=== PATIENT | male | born 1950 | race Caucasian/White ===

== ENCOUNTER 2017-09-26 08:07 | Day surgery (SDC) | payer BC, OTHER ==
[2017-09-26] MEDS ORDERED: LACTATED RINGERS 1,000 ML IV ONE (08:36)
[2017-09-26] MEDS ORDERED: fentaNYL 250 MCG/5 ML VIAL IVP ONE (09:23)
[2017-09-26] MEDS ORDERED: MIDAZOLAM 2 MG/2 ML VIAL IVP ONE (09:23)
[2017-09-26 10:36] VITALS: BP 161/90
== END 2017-09-26 08:08 | disposition home or self-care (01) ==
LOC: SDS 08:07
PROVIDERS: ATTEND Surgery
PROC: 0DJD8ZZ Inspection of Lower Intestinal Tract, Via Natural or Artificial Opening Endoscopic (ICD-10-PCS; principal; 2017-09-26 09:00)
DX: Z12.11 Encounter for screening for malignant neoplasm of colon (principal); K64.4 Residual hemorrhoidal skin tags; K64.8 Other hemorrhoids; E78.5 Hyperlipidemia, unspecified; Z86.010 Personal history of colon polyps; K21.9 Gastro-esophageal reflux disease without esophagitis; I12.9 Hypertensive chronic kidney disease with stage 1 through stage 4 chronic kidney disease, or unspecified chronic kidney disease; N18.9 Chronic kidney disease, unspecified; Z87.891 Personal history of nicotine dependence
CPT/HCPCS: 45378; J7120

== ENCOUNTER 2017-12-09 06:17 | Emergency (ER) | payer BC, MEDICARE ==
[2017-12-09 06:36] LABS: BASOPHILS % (AUTO) 0.3 %; EOSINOPHILS # (AUTO) 0.1 10^3/uL (0.0-0.7); EOSINOPHILS % (AUTO) 1.4 %; HGB - HEMOGLOBIN 16.4 g/dL (14.0-18.0); LYMPHOCYTES # (AUTO) 1.1 10^3/uL (1.5-3.5); LYMPHOCYTES % (AUTO) 11.2 %; MEAN CORPUSCULAR HEMOGLOBIN 32.9 pg (27.0-31.0); MEAN CORPUSCULAR HGB CONC 33.5 g/dL (32.0-36.0); MEAN CORPUSCULAR VOLUME 98.3 fL (80.0-94.0); MEAN PLATELET VOLUME 7.3 fL (7.4-11.4); MONOCYTES # (AUTO) 0.7 10^3/uL (0.0-1.0); MONOCYTES % (AUTO) 6.5 %; NEUTROPHILS # (AUTO) 8.1 10^3/uL (1.5-6.6); NEUTROPHILS % (AUTO) 80.6 %; PLT - PLATELET COUNT 249 10^3/uL (130-450); RED BLOOD COUNT 4.98 10^6/uL (4.70-6.10)
[2017-12-09] MEDS ORDERED: SODIUM CHLORIDE 0.9% 1,000 ML IV ONE (06:39)
[2017-12-09] MEDS ORDERED: KETOROLAC 60 MG/2 ML VIAL IVP STA (06:39)
[2017-12-09] MEDS ORDERED: ONDANSETRON 4 MG/2 ML VIAL IVP STA ×2 (06:44→07:26)
[2017-12-09 07:00] LABS: ALBUMIN 4.2 g/dL (3.2-5.5); ALBUMIN/GLOBULIN RATIO 1.6 (1.0-2.2); BILIRUBIN,TOTAL 0.7 mg/dL (0.2-1.0); CALCIUM 9.3 mg/dL (8.5-10.3); CREATININE 0.8 mg/dL (0.6-1.2); TOTAL PROTEIN 6.9 g/dL (6.7-8.2)
[2017-12-09 07:03] LABS: BILIRUBIN,URINE NEGATIVE (NEGATIVE); GLUCOSE, URINE (UA) NEGATIVE (NEGATIVE); KETONES,URINE (UA) NEGATIVE (NEGATIVE); LEUKOCYTE ESTERASE, URINE NEGATIVE (NEGATIVE); NITRITE,URINE NEGATIVE (NEGATIVE); OCCULT BLOOD,URINE MODERATE (NEGATIVE); PH,URINE 6.5 PH (5.0-7.5); PROTEIN,URINE NEGATIVE (NEGATIVE); UROBILINOGEN,URINE 0.2 (NORMAL) E.U./dL (NORMAL)
[2017-12-09 07:18] LABS: CLARITY,URINE HAZY (CLEAR)
[2017-12-09] MEDS ORDERED: MORPHINE 2 MG/ML SYRINGE IVP STA ×2 (07:26→08:37)
--- NOTE | 2017-12-09 07:28 | ED Physician Documentation ---
History of Present Illness - Stated complaint Stated Complaint: KIDNEY PX - Chief complaint Chief Complaint: Abd Pain - Additonal information Additional information: hx from pt 67 m hx renal colic and stents surgery removal urologist is at [facility] to ED with L flank to LLQ and testicle pain since 330 AMD same as prior stones no fever no hematuria seen nausea Review of Systems Constitutional: denies: Fever, Chills GI: reports: Abdominal Pain, Nausea : denies: Hematuria Musculoskeletal: reports: Back pain Endocrine: denies: Easy bruising / bleeding Immunocompromised: denies: Immunocompromised PD PAST MEDICAL HISTORY - Past Medical History Cardiovascular: Hypertension, Angina Respiratory: None Endocrine/Autoimmune: None : Kidney stones Psych: None Musculoskeletal: Chronic back pain Derm: None - Past Surgical History HEENT: Other - Present Medications Home Medications: Ambulatory Orders Medication Instructions Recorded Confirmed Doxazosin Mesylate 4 mg PO DAILY 09/23/17 09/26/17 Lisinopril 5 mg PO DAILY 09/23/17 09/26/17 Trazodone HCl 50 mg PO DAILY 09/23/17 09/26/17 Ketorolac [Toradol] 10 mg PO Q6H PRN #28 tablet 12/09/17 Ondansetron Odt [Zofran] 4 mg TL Q6H PRN #10 tablet 12/09/17 Oxycodone HCl/Acetaminophen 1 each PO Q6HR PRN #15 tablet 12/09/17 [Percocet 5-325 mg Tablet] - Allergies Allergies/Adverse Reactions: Allergies Allergy/AdvReac Type Severity Reaction Status Date / Time Sulfa (Sulfonamide AdvReac Unknown Verified 12/09/17 06:23 Antibiotics) - Social History Does the pt smoke?: No Smoking Status: Never smoker Does the pt drink ETOH?: Yes - Immunizations Immunizations are current?: Yes PD ED PE NORMAL - Vitals Vital signs reviewed: Yes - Cardiac Cardiac: RRR - Respiratory Respiratory: No respiratory distress, Clear bilaterally - Abdomen Abdomen: Soft, Non tender, Other (no pulsatile mass) - Male Male : Other (circ. no lesions or dc, testicle nl lie, mild TTP, no mass no hernia) - Back Back: No: No CVA TTP (+ L CVA TTP) - Neuro Neuro: Alert and oriented X 3 Results - Vitals Vitals: Vital Signs - 24 hr 12/09/17 12/09/17 06:22 07:42 Temperature 36.4 C L Heart Rate 71 81 Respiratory 20 14 Rate Blood Pressure 153/85 H 152/87 H O2 Saturation 100 99 Oxygen O2 Source Room air - Labs Labs: Laboratory Tests 12/09/17 12/09/17 12/09/17 06:30 06:30 06:52 WBC 10.0 RBC 4.98 Hgb 16.4 Hct 48.9 MCV 98.3 H MCH 32.9 H MCHC 33.5 RDW 13.0 Plt Count 249 MPV 7.3 L Neut # (Auto) 8.1 H Lymph # (Auto) 1.1 L [place] # (Auto) 0.7 Eos # (Auto) 0.1 Baso # (Auto) 0.0 Absolute Nucleated RBC 0.00 Nucleated RBC % 0.0 Sodium 137 Potassium 3.9 Chloride 103 Carbon Dioxide 29 Anion Gap 5.0 L BUN 13 Creatinine 0.8 Estimated GFR (MDRD) 97 Glucose 137 H Calcium 9.3 Total Bilirubin 0.7 AST 19 ALT 17 Alkaline Phosphatase 72 Total Protein 6.9 Albumin 4.2 Globulin 2.7 Albumin/Globulin Ratio 1.6 Lipase 26 Urine Color YELLOW Urine Clarity HAZY Urine pH 6.5 Ur Specific [place] 1.025 Urine Protein NEGATIVE Urine Glucose (UA) NEGATIVE Urine Ketones NEGATIVE Urine Occult Blood MODERATE H Urine Nitrite NEGATIVE Urine Bilirubin NEGATIVE Urine Urobilinogen 0.2 (NORMAL) Ur Leukocyte Esterase NEGATIVE Urine RBC 11-25 H Urine WBC 0-3 Ur Squamous Epith Cells RARE Squamous Urine Bacteria None Seen Ur Microscopic Review INDICATED Urine Culture Comments NOT INDICATED - Rads (name of study) CT AP Radiology: See rad report (obstructing distal left ureteral stone 4.5 X 3 mm with hydro, non obstructing R renal calculi, nl appendix) PD MEDICAL DECISION MAKING - ED course ED course: renal colic < 5 mm distal afebrile nl WBC, no WBC or bacteria on UA if can control pain feel pt can dc home to p urology - Sepsis Event Vital Signs: Vital Signs - 24 hr 12/09/17 12/09/17 06:22 07:42 Temperature 36.4 C L Heart Rate 71 81 Respiratory 20 14 Rate Blood Pressure 153/85 H 152/87 H O2 Saturation 100 99 Oxygen O2 Source Room air Departure - Departure Disposition: 01 Home, Self Care Clinical Impression: Renal colic Condition: Good Instructions: ED Stone Renal W Colic Follow-Up: Edward Nick DO [Primary Care Provider] - Prescriptions: Oxycodone HCl/Acetaminophen [Percocet 5-325 mg Tablet] 1 each PO Q6HR PRN #15 tablet PRN Reason: Severe Pain Ketorolac [Toradol] 10 mg PO Q6H PRN #28 tablet PRN Reason: Pain Ondansetron Odt [Zofran] 4 mg TL Q6H PRN #10 tablet PRN Reason: Nausea / Vomiting Comments: The CT shows that the stone is less than 5 mm and has already passed through much of the ureter Most stones less than 5 mm can be passed without urology intervention There is no associated urine infection that we can detect on our labs today So it seems safe to let you go home with pain medications - do not take ibuprofen while taking toradol Please follow up with your urologist if not passed by Tuesday And return to the ER (here or at [facility] where your urologist is) if worse in any way Forms: Activity restrictions
[2017-12-09 07:32] LABS: BACTERIA,URINE None Seen /HPF (None Seen); SQUAMOUS EPITHELIAL CELL,UR RARE Squamous (<= Few)
--- NOTE | 2017-12-09 08:46 | CT Report ---
Procedure Date: 12/09/2017 Accession Number: [id number] / [id number] Procedure: CT - Abdomen/Pelvis W/O CPT Code: FULL RESULT: EXAM: CT ABDOMEN AND PELVIS EXAM DATE: 12/09/2017 08:31 AM. CLINICAL HISTORY: Left flank pain. History of bilateral kidney stones. COMPARISONS: None. TECHNIQUE: Routine helical CT imaging was performed through the abdomen and pelvis. IV contrast: None. Enteric contrast: No. Reconstructions: Coronal and sagittal. In accordance with CT protocol optimization, one or more of the following dose reduction techniques were utilized for this exam: automated exposure control, adjustment of mA and/or KV based on patient size, or use of iterative reconstructive technique. FINDINGS: Lung Bases: Bibasilar scar/atelectasis. Heart size is normal. Tiny hiatal hernia. Liver: Normal. No masses. Gallbladder/Bile Ducts: Unremarkable. Spleen: Normal. Pancreas: Pancreatic parenchymal volume loss. No peripancreatic edema. Adrenal Glands: Normal. Kidneys: Left perinephric stranding and left hydronephrosis and left ureteral dilatation to the distal left ureter where there is an obstructing 4.5 x 3 mm calculus adjacent to the left iliac vessels. Distally the left ureter is not dilated. Numerous nonobstructing right renal calculi are seen the largest in the lower pole measuring 6 mm. Peritoneal Cavity/Bowel: Stomach is nondistended. No bowel obstruction. Small to moderate volume of stool in the colon. Appendix is normal. No diverticulitis. No free air. No intra-abdominal fluid collections. Pelvic Organs: No bladder calculi. Prostate gland is enlarged measuring in transverse extent 5.8 cm. No pelvic free fluid. No pelvic adenopathy. Vasculature: Atherosclerotic calcified plaque. No aneurysm. Bones: Degenerative changes of the lower thoracic and lumbar spine and both hip joints. Other: None. IMPRESSION: 1. Obstructing distal left ureteral 4.5 x 3 mm calculus causing left hydronephrosis. 2. Nonobstructing right renal calculi. Normal appendix. RADIA
[2017-12-09 10:03] VITALS: BP 162/90
== END 2017-12-09 10:06 | disposition home or self-care (01) ==
LOC: ED 06:17
DX: N20.0 Calculus of kidney (principal); N13.2 Hydronephrosis with renal and ureteral calculous obstruction; I10 Essential (primary) hypertension
CPT/HCPCS: 36415; 74176; 80053; 81001; 83690; 85025; 96361; 96374; 96375; 96376; 99283; 99284; J2270; 81003; 87086

== ENCOUNTER 2018-01-21 08:11 | Outpatient (CLI) | payer BC, MEDICARE ==
--- NOTE | 2018-01-21 14:06 | Ultrasound Report ---
Procedure Date: 01/21/2018 Accession Number: [id number] / [id number] Procedure: US - Retroperitoneal CPT Code: FULL RESULT: EXAM: RENAL ULTRASOUND EXAM DATE: 01/21/2018 09:11 AM. CLINICAL HISTORY: URETERAL STONE. COMPARISON: CT 12/09/2017. TECHNIQUE: Real-time scanning was performed with static images obtained. FINDINGS: Right Kidney: 12.1 x 6.2 x 6.0 cm. Normal echotexture with no stones, contour-deforming masses, or hydronephrosis. Nonobstructive calculi measure up to 9 mm. Left Kidney: 12.3 x 6.3 x 6.2 cm. Normal echotexture with no stones, contour-deforming masses, or hydronephrosis. No visualized calculi. Bladder: Bilateral jets seen. The prevoid bladder volume was 229 cc. The postvoid bladder volume was 135 cc. Other: None. IMPRESSION: 1. Resolution of left hydronephrosis. 2. Nonobstructive right renal calculi. 3. Significant postvoid bladder volume. RADIA
== END 2018-01-21 08:12 | disposition home or self-care (01) ==
LOC: DI 08:11
PROVIDERS: ATTEND Physician Assistant
DX: N20.2 Calculus of kidney with calculus of ureter (principal)
CPT/HCPCS: 76770

== ENCOUNTER 2018-01-28 07:09 | Outpatient (CLI) | payer BC, MEDICARE ==
--- NOTE | 2018-01-28 14:42 | CT Report ---
Procedure Date: 01/28/2018 Accession Number: [id number] / [id number] Procedure: CT - KUB CPT Code: FULL RESULT: EXAM: CT ABDOMEN AND PELVIS (CT KUB) EXAM DATE: 01/28/2018 07:45 AM. CLINICAL HISTORY: CALCULUS OF KIDNEY. COMPARISONS: ABDOMEN/PELVIS W/O 12/09/2017 8:24 AM. TECHNIQUE: Routine axial helical CT imaging was performed through the abdomen and pelvis without IV contrast. Reconstructions: Coronal and sagittal. In accordance with CT protocol optimization, one or more of the following dose reduction techniques were utilized for this exam: automated exposure control, adjustment of mA and/or KV based on patient size, or use of iterative reconstructive technique. FINDINGS: Lung Bases: Unremarkable. Right Kidney/Ureter: There are multiple nonobstructing calyceal calculi, as seen on the prior exam. The largest in the inferior pole measures up to 7 mm (series 3 image 66). No hydronephrosis, perinephric fat stranding, or hydroureter. Left Kidney/Ureter: The previously seen left hydronephrosis and perinephric fat stranding have resolved. No renal calculi or ureteral calculi. Other Solid Organs: Noncontrast images of the solid organs are grossly unremarkable. Gallbladder/Bile Ducts: Unremarkable. Peritoneal Cavity: No free fluid, free air or leticia adenopathy. Bowel is grossly unremarkable. The appendix is normal. Pelvic Organs: No bladder stones or wall thickening. The prostate is enlarged measuring approximately 4.9 x 4.7 cm in the transverse plane, similar to prior. Vasculature: There is mild atherosclerotic calcification of the abdominal aorta and iliac arteries. No aneurysm. Other: No acute osseous abnormality. There are mild multilevel degenerative disk changes of the lumbar spine. IMPRESSION: 1. Interval resolution of previously seen left hydronephrosis and hydroureter. No left-sided urinary tract stones identified. 2. Multiple nonobstructing right renal calculi, as seen on the prior exam. No right hydronephrosis or hydroureter. RADIA
== END 2018-01-28 07:10 | disposition home or self-care (01) ==
LOC: DI 07:09
PROVIDERS: ATTEND Urology
DX: N20.0 Calculus of kidney (principal)
CPT/HCPCS: 74176

== ENCOUNTER 2018-11-08 07:41 | Emergency (ER) | payer MEDICARE, BC ==
[2018-11-08 08:21] LABS: BASOPHILS # (AUTO) 0.1 10^3/uL (0.0-0.1); BASOPHILS % (AUTO) 0.6 %; EOSINOPHILS # (AUTO) 0.1 10^3/uL (0.0-0.7); EOSINOPHILS % (AUTO) 1.2 %; HGB - HEMOGLOBIN 15.6 g/dL (14.0-18.0); LYMPHOCYTES # (AUTO) 1.5 10^3/uL (1.5-3.5); LYMPHOCYTES % (AUTO) 14.4 %; MEAN CORPUSCULAR HEMOGLOBIN 32.5 pg (27.0-31.0); MEAN CORPUSCULAR HGB CONC 34.2 g/dL (32.0-36.0); MEAN CORPUSCULAR VOLUME 94.9 fL (80.0-94.0); MONOCYTES # (AUTO) 1.1 10^3/uL (0.0-1.0); NEUTROPHILS # (AUTO) 7.8 10^3/uL (1.5-6.6); NEUTROPHILS % (AUTO) 73.8 %; PLT - PLATELET COUNT 268 10^3/uL (130-450); RED BLOOD COUNT 4.81 10^6/uL (4.70-6.10); RED CELL DISTRIBUTION WIDTH 13.6 % (12.0-15.0); WHITE BLOOD COUNT 10.6 x10^3/uL (4.8-10.8)
[2018-11-08 08:42] LABS: BILIRUBIN,URINE NEGATIVE (NEGATIVE); CLARITY,URINE CLEAR (CLEAR); GLUCOSE, URINE (UA) NEGATIVE (NEGATIVE); KETONES,URINE (UA) NEGATIVE (NEGATIVE); LEUKOCYTE ESTERASE, URINE NEGATIVE (NEGATIVE); NITRITE,URINE NEGATIVE (NEGATIVE); OCCULT BLOOD,URINE NEGATIVE (NEGATIVE); PROTEIN,URINE NEGATIVE (NEGATIVE); UROBILINOGEN,URINE 0.2 (NORMAL) E.U./dL (NORMAL)
--- NOTE | 2018-11-08 09:01 | XRAY Report ---
Reason: fall down the stairs. pain/swelling Procedure Date: 11/08/2018 Accession Number: [id number] / [id number] Procedure: XR - Knee 3 View RT CPT Code: FULL RESULT: EXAM: RIGHT KNEE RADIOGRAPHY EXAM DATE: 11/08/2018 08:30 AM. CLINICAL HISTORY: Fall down the stairs. pain/swelling. COMPARISON: None. TECHNIQUE: 3 views. FINDINGS: Bones: No fractures or bone lesions. Joints: . No effusion. No subluxations. Soft Tissues: No soft tissue swelling. IMPRESSION: Normal right knee radiography. RADIA
[2018-11-08 09:23] LABS: ALBUMIN 4.2 g/dL (3.2-5.5); ALBUMIN/GLOBULIN RATIO 1.6 (1.0-2.2); BILIRUBIN,TOTAL 1.1 mg/dL (0.2-1.0); CALCIUM 9.5 mg/dL (8.5-10.3); CREATININE 0.7 mg/dL (0.6-1.2); TOTAL PROTEIN 6.9 g/dL (6.7-8.2)
[2018-11-08] MEDS ORDERED: ONDANSETRON 4 MG/2 ML VIAL IVP STA (09:23)
[2018-11-08] MEDS ORDERED: HYDROmorphone 1 MG/ML CARPUJECT IVP STA ×2 (09:23→11:32)
--- NOTE | 2018-11-08 10:01 | XRAY Report ---
Reason: cough Procedure Date: 11/08/2018 Accession Number: [id number] / [id number] Procedure: XR - Chest 2 View X-Ray CPT Code: 66055 FULL RESULT: EXAM: CHEST RADIOGRAPHY EXAM DATE: 11/08/2018 09:53 AM. CLINICAL HISTORY: Cough. COMPARISON: None. TECHNIQUE: 2 views. FINDINGS: Lungs/Pleura: No focal opacities evident. No peribronchial cuffing or interstitial abnormality. No pleural effusion. No pneumothorax. Normal volumes. Mediastinum: Heart and mediastinal contours are unremarkable. Other: None. IMPRESSION: Normal 2-view chest radiography. RADIA
[2018-11-08 10:04] LABS: URIC ACID 4.2 mg/dL (2.6-7.2)
[2018-11-08 10:30] LABS: CRP - C-REACTIVE PROTEIN < 1.0 mg/dL (0-1.0)
[2018-11-08] MEDS ORDERED: KETOROLAC 30 MG/ML VIAL IVP STA (12:34)
[2018-11-08] MEDS ORDERED: SODIUM CHLORIDE 0.9% 1,000 ML IV ONE (12:34)
--- NOTE | 2018-11-08 12:44 | ED Physician Documentation ---
History of Present Illness - Stated complaint Stated Complaint: RT LEG PX - Chief complaint Chief Complaint: General - History obtained from History obtained from: Patient, Family - History of Present Illness Pain level max: 7 Pain level now: 7 (This is a 68-year-old male presents with his complains that he was walking down the steps 2 days ago when his right leg just gave out on him and he fell. It felt numb. He landed on his knee. He worked out in the yard all day yesterday very active and then Yesterday was extremely fatigued to the point that he drove himself to work but fell asleep [address] there without wrecking his car. He decided when he got working he did turn around and come straight home. 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 He never passed out. Last night before he went to bed he was feeling little dizzy and has had some palpitations with feeling like his heart was racing intermittently. He woke up this morning in extreme pain around 1 AM. He took some Aleve around 4 AM for the pain in the knee. It has not helped at all.He denies shortness of breath or chest pain. He has had an L4-5 pinched nerve with injections in the past.) Review of Systems Constitutional: denies: Fever Eyes: denies: Decreased vision Nose: denies: Congestion Throat: denies: Sore throat Cardiac: reports: Palpitations, Pedal edema (Right leg for the past 6 to 8 months it swells throughout the day.), Other (Patient had a cardiac catheterization 8 or 10 years ago that was normal). denies: Chest pain / pressure Respiratory: denies: Dyspnea, Cough GI: denies: Abdominal Pain, Nausea, Vomiting : reports: Frequency, Other (History of enlarged prostate and kidney stones. He sees a urologist no prior surgery). denies: Dysuria Skin: reports: Abrasion (s) (Right knee when he fell). denies: Rash Musculoskeletal: reports: Back pain (Chronic back pain with a history of disc herniation L4-L5 that he underwent injections for.) Neurologic: reports: Numbness (The right leg felt numb when he fell 4 days ago), Headache (Occipital) PD PAST MEDICAL HISTORY - Past Medical History Past Medical History: Yes Cardiovascular: Hypertension, Angina Respiratory: None Endocrine/Autoimmune: None : Benign prostate hypertrophy, Kidney stones Psych: None Musculoskeletal: Chronic back pain Derm: None - Past Surgical History HEENT: Other - Present Medications Home Medications: Ambulatory Orders Medication Instructions Recorded Confirmed RX: Lisinopril 5 mg PO DAILY 09/23/17 11/08/18 RX: Trazodone HCl 50 mg PO DAILY 09/23/17 11/08/18 Hydrocodone/Acetaminophen 1 - 2 each PO Q6H PRN #14 tablet 11/08/18 [Hydrocodon-Acetaminophen 5-325] RX: Naproxen Sodium 550 mg PO BID #20 tablet 11/08/18 Tamsulosin HCl [Flomax] 0.4 mg PO DAILY 11/08/18 11/08/18 - Allergies Allergies/Adverse Reactions: Allergies Allergy/AdvReac Type Severity Reaction Status Date / Time Sulfa (Sulfonamide AdvReac Unknown Verified 11/08/18 07:51 Antibiotics) - Social History Does the pt smoke?: No Smoking Status: Never smoker Does the pt drink ETOH?: Yes Does the pt have substance abuse?: No - Immunizations Immunizations are current?: Yes - POLST Patient has POLST: No PD ED PE NORMAL - Vitals Vital signs reviewed: Yes - General General: Alert and oriented X 3, No acute distress, Well developed/nourished - HEENT HEENT: Atraumatic, PERRL, EOMI, Moist mucous membranes, Pharynx benign - Neck Neck: Supple, no meningeal sign, No bruit - Cardiac Cardiac: RRR, No murmur - Respiratory Respiratory: No respiratory distress, Clear bilaterally - Abdomen Abdomen: Normal bowel sounds, Soft, Non tender - Derm Derm: Normal color, Other (Abrasion to the lateral right knee at the tibial plateau) - Extremities Extremities: No deformity, Other (There is erythema overlying the right patella and warmth. Its mildly boggy. Is very well sharply demarcated. Range of motion about the knee is limited because of this. No obvious effusion. Knee is stable to varus and valgus stresses.) - Neuro Neuro: Alert and oriented X 3, knit goods mender 2-12 intact, No motor deficit, No sensory deficit - Psych Psych: Normal mood, Normal affect Results - Vitals Vitals: Vital Signs - 24 hr 0511/08/18 11/08/18 07:47 10:25 12:09 Temperature 36.5 C Heart Rate 83 66 64 Respiratory 14 19 17 Rate Blood Pressure 142/87 H 142/87 H 138/84 H O2 Saturation 97 100 98 11/08/18 11/08/18 12:49 13:44 Temperature Heart Rate 75 69 Respiratory 15 22 Rate Blood Pressure 143/84 H 143/87 H O2 Saturation 99 96 Oxygen O2 Source Room air - Labs Labs: Laboratory Tests 11/08/18 11/08/18 11/08/18 07:57 08:05 08:05 WBC 10.6 RBC 4.81 Hgb 15.6 Hct 45.7 MCV 94.9 H MCH 32.5 H MCHC 34.2 RDW 13.6 Plt Count 268 MPV 8.0 Neut # (Auto) 7.8 H Lymph # (Auto) 1.5 [place] # (Auto) 1.1 H Eos # (Auto) 0.1 Baso # (Auto) 0.1 Absolute Nucleated RBC 0.00 Nucleated RBC % 0.0 ESR Sodium 139 Potassium 5.1 H Chloride 103 Carbon Dioxide 29 Anion Gap 7.0 BUN 15 Creatinine 0.7 Estimated GFR (MDRD) 113 Glucose 110 H POC Whole Bld Glucose 115 H Lactic Acid Uric Acid Calcium 9.5 Total Bilirubin 1.1 H AST 18 ALT 15 Alkaline Phosphatase 68 C-Reactive Protein Total Protein 6.9 Albumin 4.2 Globulin 2.7 Albumin/Globulin Ratio 1.6 Lipase 25 Urine Color Urine Clarity Urine pH Ur Specific [place] Urine Protein Urine Glucose (UA) Urine Ketones Urine Occult Blood Urine Nitrite Urine Bilirubin Urine Urobilinogen Ur Leukocyte Esterase Ur Microscopic Review Urine Culture Comments 11/08/18 11/08/18 11/08/18 08:30 08:55 08:55 WBC RBC Hgb Hct MCV MCH MCHC RDW Plt Count MPV Neut # (Auto) Lymph # (Auto) [place] # (Auto) Eos # (Auto) Baso # (Auto) Absolute Nucleated RBC Nucleated RBC % ESR 1 Sodium Potassium Chloride Carbon Dioxide Anion Gap BUN Creatinine Estimated GFR (MDRD) Glucose POC Whole Bld Glucose Lactic Acid Uric Acid 4.2 Calcium Total Bilirubin AST ALT Alkaline Phosphatase C-Reactive Protein < 1.0 Total Protein Albumin Globulin Albumin/Globulin Ratio Lipase Urine Color YELLOW Urine Clarity CLEAR Urine pH 6.0 Ur Specific [place] 1.020 Urine Protein NEGATIVE Urine Glucose (UA) NEGATIVE Urine Ketones NEGATIVE Urine Occult Blood NEGATIVE Urine Nitrite NEGATIVE Urine Bilirubin NEGATIVE Urine Urobilinogen 0.2 (NORMAL) Ur Leukocyte Esterase NEGATIVE Ur Microscopic Review NOT INDICATED Urine Culture Comments NOT INDICATED 11/08/18 09:55 WBC RBC Hgb Hct MCV MCH MCHC RDW Plt Count MPV Neut # (Auto) Lymph # (Auto) [place] # (Auto) Eos # (Auto) Baso # (Auto) Absolute Nucleated RBC Nucleated RBC % ESR Sodium Potassium Chloride Carbon Dioxide Anion Gap BUN Creatinine Estimated GFR (MDRD) Glucose POC Whole Bld Glucose Lactic Acid 0.6 Uric Acid Calcium Total Bilirubin AST ALT Alkaline Phosphatase C-Reactive Protein Total Protein Albumin Globulin Albumin/Globulin Ratio Lipase Urine Color Urine Clarity Urine pH Ur Specific [place] Urine Protein Urine Glucose (UA) Urine Ketones Urine Occult Blood Urine Nitrite Urine Bilirubin Urine Urobilinogen Ur Leukocyte Esterase Ur Microscopic Review Urine Culture Comments PD MEDICAL DECISION MAKING - ED course Complexity details: reviewed results, re-evaluated patient, d/w patient, d/w family ED course: Patient initially declined any pain medication for his right knee but then requested to the nursing staff that he received something so he got Dilaudid and some Zofran. He required a dose of 2 mg to bring the pain under control and at that point he was able to bend the knee and straighten it although it was more painful to straighten it. His laboratory studies showed a normal white blood cell count, normal sed rate normal CRP and normal uric acid. Patient did have an injury where he fell onto the knee and then 2 days ago was outside working vigorously in the yard.I do not see any indication at this time that this is a septic joint. To be treated with naproxen twice a day and also given a few doses of hydrocodone. I would like him reevaluated in 24 to 48 hours or return to the emergency department sooner if his symptoms are worsening. He is given a note to be off work so that he can be home and resting and of also recommended applying ice to the knee and avoiding repetitive movements. Departure - Departure Disposition: 01 Home, Self Care Clinical Impression: Bursitis Qualifiers: Bursitis location: knee Knee bursitis location: prepatellar bursitis Laterality: right Qualified Code(s): M70.41 - Prepatellar bursitis, right knee Fatigue Qualifiers: Fatigue type: unspecified Qualified Code(s): R53.83 - Other fatigue Condition: Good Instructions: ED Bursitis Follow-Up: Edward Nick DO [Primary Care Provider] - Prescriptions: Hydrocodone/Acetaminophen [Hydrocodon-Acetaminophen 5-325] 1 - 2 each PO Q6H PRN #14 tablet PRN Reason: pain RX: Naproxen Sodium 550 mg PO BID #20 tablet Comments: Rest. May apply ice to the knee. Take the naproxen twice a day as prescribed with food. May use hydrocodone if needed for pain but do not take additional Tylenol or try to drive or operate machinery if taking that. Recheck with your primary care provider in 2 days for recheck. Return to the emergency department if you are having increasing pain, spreading redness, fever, vomiting and unable to keep anything down, you pass out or other problems arise. Forms: Activity restrictions Discharge Date/Time: 11/08/18 13:55
[2018-11-08 13:44] VITALS: BP 143/87
== END 2018-11-08 13:55 | disposition home or self-care (01) ==
LOC: ED 07:41
DX: M70.41 Prepatellar bursitis, right knee (principal); S80.211A Abrasion, right knee, initial encounter; W10.9XXA Fall (on) (from) unspecified stairs and steps, initial encounter; Y92.009 Unspecified place in unspecified non-institutional (private) residence as the place of occurrence of the external cause; R53.83 Other fatigue; R42 Dizziness and giddiness; R00.2 Palpitations; I10 Essential (primary) hypertension; N40.1 Benign prostatic hyperplasia with lower urinary tract symptoms; R35.0 Frequency of micturition
CPT/HCPCS: 36415; 71046; 73562; 80053; 81003; 83605; 83690; 84550; 85025; 85651; 86140; 93005; 96374; 96375; 96376; 99283; 99284; J1170; 81001; 87086

== ENCOUNTER 2018-12-19 07:08 | Outpatient (CLI) | payer MEDICARE, OTHER ==
--- NOTE | 2018-12-19 16:01 | Ultrasound Report ---
Reason: HISTORY OF KIDNEY STONES Procedure Date: 12/19/2018 Accession Number: [id number] / [id number] Procedure: US - Retroperitoneal CPT Code: FULL RESULT: EXAM: RENAL ULTRASOUND EXAM DATE: 12/19/2018 08:21 AM. CLINICAL HISTORY: History of kidney stones. COMPARISON: Retroperitoneal ultrasound 01/21/2018. TECHNIQUE: Real-time scanning was performed with static images obtained. FINDINGS: Right Kidney: 12.6 cm. There is moderate right-sided hydronephrosis with a 0.8 cm calculus in the mid to distal ureter, at least partially obstructing given presence of a residual ureteral jet but clear hydronephrosis. Left Kidney: 11.3 cm. Normal echotexture with no stones, contour-deforming masses, or hydronephrosis. Bladder: Again seen is a prominent masslike prostate lifting the base of the bladder with irregular appearance of the dome of the prostate, at least 4.2 x 3.7 x 4.6 cm. Bilateral jets seen. The prevoid bladder volume was 152 cc. The patient could not void. Other: None. IMPRESSION: Ureteral 0.8 cm right-sided calculus with upstream moderate hydronephrosis as described above. RAD[facility] The call report notification system was initiated by Dr. Rolando Li at 03:51 PM on 12/19/2018. ADDENDUM: 12/19/18 16:23 The above call report findings were discussed with Cristina Hernandez by Dr. Rolando Li at 04:23 PM on 12/19/2018.
== END 2018-12-19 07:09 | disposition home or self-care (01) ==
LOC: DI 07:08
PROVIDERS: ATTEND Urology
DX: N13.2 Hydronephrosis with renal and ureteral calculous obstruction (principal); Z87.442 Personal history of urinary calculi
CPT/HCPCS: 76770

== ENCOUNTER 2019-07-18 09:58 | Outpatient (CLI) | payer MEDICARE, OTHER ==
--- NOTE | 2019-07-18 15:47 | XRAY Report ---
Reason: CALCULUS OF KIDNEY Procedure Date: 07/18/2019 Accession Number: [id number] / [id number] Procedure: XR - Abdomen 1 View X-Ray CPT Code: 57915 Final Report FULL RESULT: EXAM: ABDOMEN RADIOGRAPHY EXAM DATE: 07/18/2019 11:29 AM. CLINICAL HISTORY: CALCULUS OF KIDNEY. COMPARISON: None. TECHNIQUE: 1 view. FINDINGS: Bowel Gas Pattern: Within normal limits. No dilated loops. Other: No radiopaque calculus in the field IMPRESSION: No radiopaque calculus in the field. RADIA
== END 2019-07-18 09:59 | disposition home or self-care (01) ==
LOC: LAB 09:58 → DI 09:59
PROVIDERS: ATTEND Urology
DX: Z12.5 Encounter for screening for malignant neoplasm of prostate (principal); N20.0 Calculus of kidney
CPT/HCPCS: 36415; 74018; G0103; 84153

== ENCOUNTER 2019-11-23 16:46 | Outpatient (CLI) | payer MEDICARE, OTHER ==
--- NOTE | 2019-11-23 18:35 | Ultrasound Report ---
PROCEDURE: Duplex Ext Veins Right INDICATIONS: THIGH PAIN history of sclerotherapy. TECHNIQUE: Real-time imaging, as well as color and pulse Doppler interrogation, were performed of the lower extr emity deep veins from the inguinal ligament to the popliteal fossa. COMPARISON: None. FINDINGS: The deep veins are normally compressible, and free of intraluminal thrombus. Color and pu lse Doppler demonstrate normal phasic intraluminal flow. There is normal augmentation response to di stal compression maneuver. The greater saphenous vein is noncompressible and demonstrates no flow. F inding may be the result of greater saphenous vein ablation. Superficial venous thrombus could also p roduces appearance. IMPRESSION: 1. No evidence of right lower extremity DVT. 2. Noncompressible greater saphenous vein, suggestive of post surgical sequelae versus superficial th rombophlebitis. Correlation with surgical history recommended. Reviewed by: Linda Platt MD on 11/23/2019 6:34 PM PDT Approved by: Linda Platt MD on 11/23/2019 6:34 PM PDT Station ID: [id number]
== END 2019-11-23 16:47 | disposition home or self-care (01) ==
LOC: DI 16:46
PROVIDERS: ATTEND Physician Assistant Medical
DX: I87.8 Other specified disorders of veins (principal)

== ENCOUNTER 2020-04-24 18:49 | Outpatient (CLI) | payer MEDICARE, OTHER ==
--- NOTE | 2020-04-25 08:37 | Ultrasound Report ---
PROCEDURE: Retroperitoneal INDICATIONS: Left-sided renal colic TECHNIQUE: Real-time scanning was performed of the retroperitoneal organs, with image documentation. COMPARISON: 12/09/2017 CT abdomen and pelvis; 12/19/2018 retroperitoneal ultrasound. FINDINGS: Right kidney: There are multiple nonobstructing right renal calculi measuring up to 5 mm. These are g rossly similar in size and number to the comparison CT and ultrasound exams. There is no hydronephros is. Left kidney: Normal appearance of the left kidney without calculus or hydronephrosis demonstrated. Urinary bladder: No urinary bladder wall thickening or mass. Both ureteral jets are identified. There is a postvoid residual of 56 mL. Mild prostatomegaly. Urinary bladder is otherwise normal. IMPRESSION: Mild prostatomegaly and small post void residual. Multiple nonobstructing right renal calculi. No hydronephrosis in either kidney. Reviewed by: Edward Yuan MD on 04/25/2020 8:35 AM PST Approved by: Edward Yuan MD on 04/25/2020 8:35 AM PST Station ID: [id number]
== END 2020-04-24 18:50 | disposition home or self-care (01) ==
LOC: DI 18:49
PROVIDERS: ATTEND Urology
DX: N40.0 Benign prostatic hyperplasia without lower urinary tract symptoms (principal); N20.0 Calculus of kidney
CPT/HCPCS: 76770

== ENCOUNTER 2020-09-15 07:32 | Outpatient (CLI) | payer MEDICARE, OTHER ==
--- NOTE | 2020-09-15 10:26 | Ultrasound Report ---
PROCEDURE: Aorta Screening INDICATIONS: HX OF NICOTINE DEPENDENCY TECHNIQUE: Real time scanning was performed of the aorta and iliac arteries, with image documentatio n. COMPARISON: Retroperitoneal ultrasound 04/24/2020. FINDINGS: Aorta: Proximal aortic diameter measures 2.5 x 2.4 cm. Mid-aorta measures 2.5 x 2.4 cm. Distal aor tic diameter is 2.0 x 2.1 cm. Iliac arteries: Right common iliac artery measures 1.1 x 1.1 cm. Left common iliac artery measures 1.1 x 1.0 cm. IMPRESSION: No aneurysm found. Reviewed by: Carlos Acosta MD on 09/15/2020 10:24 AM PDT Approved by: Carlos Acosta MD on 09/15/2020 10:24 AM PDT Station ID: [id number]
== END 2020-09-15 07:33 | disposition home or self-care (01) ==
LOC: DI 07:32
PROVIDERS: ATTEND Physician Assistant Medical
DX: Z13.6 Encounter for screening for cardiovascular disorders (principal); Z87.891 Personal history of nicotine dependence

== ENCOUNTER 2021-09-28 17:54 | Emergency (ER) | payer MEDICARE, OTHER ==
[2021-09-28 18:51] LABS: BILIRUBIN,URINE NEGATIVE (NEGATIVE); GLUCOSE, URINE (UA) NEGATIVE (NEGATIVE); KETONES,URINE (UA) NEGATIVE (NEGATIVE); LEUKOCYTE ESTERASE, URINE NEGATIVE (NEGATIVE); NITRITE,URINE NEGATIVE (NEGATIVE); OCCULT BLOOD,URINE NEGATIVE (NEGATIVE); PH,URINE 7.5 PH (5.0-7.5); PROTEIN,URINE NEGATIVE (NEGATIVE); UROBILINOGEN,URINE 0.2 (NORMAL) E.U./dL (NORMAL)
[2021-09-28 18:53] LABS: CLARITY,URINE CLEAR (CLEAR)
[2021-09-28] MEDS ORDERED: PHENAZOPYRIDINE 100 MG TABLET PO STA (19:26)
--- NOTE | 2021-09-28 19:28 | ED Physician Documentation ---
PD HPI MALE - Stated complaint Stated Complaint: UNABLE TO URINATE - Chief complaint Chief Complaint: Abd Pain - History obtained from History obtained from: Patient - History of Present Illness Associated symptoms: Dysuria, Urinary frequency, Other (states weak urinary stream) - Additional information Additional information: Patient has had difficulty with urination for several months. Over the past 4 to 5 days he has had some burning with urination as well. Feels he is not emptying his bladder completely. Recently started on dutasteride in addition to 0.8 mg of Flomax at home. He has an appointment with urology in the morning. No fevers. No chills. No nausea. No vomiting. Has a history of enlarged prostate. Review of Systems Constitutional: denies: Fever, Chills Respiratory: denies: Cough GI: denies: Vomiting, Diarrhea : reports: Dysuria, Frequency, Hesitancy. denies: Unable to Void Skin: denies: Rash Musculoskeletal: denies: Neck pain, Back pain Neurologic: denies: Headache PD PAST MEDICAL HISTORY - Past Medical History Cardiovascular: Hypertension, Angina Respiratory: None Endocrine/Autoimmune: None : Benign prostate hypertrophy, Kidney stones Psych: None Musculoskeletal: Chronic back pain Derm: None - Past Surgical History HEENT: Other - Present Medications Home Medications: Ambulatory Orders Medication Instructions Recorded Confirmed Trazodone HCl 50 mg PO DAILY 09/23/17 11/08/18 lisinopriL [Lisinopril] 5 mg PO DAILY 09/23/17 11/08/18 Hydrocodone/Acetaminophen 1 - 2 each PO Q6H PRN #14 tablet 11/08/18 [Hydrocodon-Acetaminophen 5-325] Naproxen Sodium 550 mg PO BID #20 tablet 11/08/18 Tamsulosin HCl [Flomax] 0.4 mg PO DAILY 11/08/18 11/08/18 - Allergies Allergies/Adverse Reactions: Allergies Allergy/AdvReac Type Severity Reaction Status Date / Time Sulfa (Sulfonamide AdvReac Unknown Verified 09/28/21 18:13 Antibiotics) - Social History Does the pt smoke?: No Smoking Status: Never smoker Does the pt drink ETOH?: Yes Does the pt have substance abuse?: No - Immunizations Immunizations are current?: Yes - POLST Patient has POLST: No PD ED PE NORMAL - Vitals Vital signs reviewed: Yes - General General: Alert and oriented X 3, No acute distress - HEENT HEENT: Moist mucous membranes - Neck Neck: Supple, no meningeal sign - Cardiac Cardiac: RRR - Respiratory Respiratory: No respiratory distress, Clear bilaterally - Abdomen Abdomen: Soft, Non tender, Non distended - Derm Derm: Warm and dry - Neuro Neuro: Alert and oriented X 3 Results - Vitals Vitals: Vital Signs - 24 hr 09/28/21 09/28/21 18:14 19:44 Temperature 36.3 C L 36.5 C Heart Rate 84 80 Respiratory 18 16 Rate Blood Pressure 191/91 H 150/80 H O2 Saturation 97 98 Oxygen O2 Source Room air - Labs Labs: Laboratory Tests 09/28/21 18:18 Urine Color YELLOW Urine Clarity CLEAR Urine pH 7.5 Ur Specific [place] 1.020 Urine Protein NEGATIVE Urine Glucose (UA) NEGATIVE Urine Ketones NEGATIVE Urine Occult Blood NEGATIVE Urine Nitrite NEGATIVE Urine Bilirubin NEGATIVE Urine Urobilinogen 0.2 (NORMAL) Ur Leukocyte Esterase NEGATIVE Ur Microscopic Review NOT INDICATED Urine Culture Comments NOT INDICATED PD MEDICAL DECISION MAKING - ED course Complexity details: reviewed results, re-evaluated patient, considered differential, d/w patient ED course: Patient with dysuria, urinary frequency and weak urinary stream. He is able to void here. He does not want a Kim catheter placed. No evidence of infection. We will trial him on Pyridium. He is already on 0.8 mg of Flomax at home. He has an appointment with urology tomorrow. We will have him follow-up with urology for further care. No indication for further work-up at this time. Patient counseled regarding signs and symptoms for which I believe and urgent re-evaluation would be necessary. Patient with good understanding of and agreement to plan and is comfortable going home at this time This document was made in part using voice recognition software. While efforts are made to proofread this document, sound alike and grammatical errors may occur. Departure - Departure Disposition: 01 Home, Self Care Clinical Impression: Dysuria Condition: Good Instructions: ED Prostate Enlarged Follow-Up: Cristina Hernandez MD [Physician No Access] - Tomorrow Comments: Your symptoms are likely due to an enlarged prostate. Follow-up with urology tomorrow as scheduled. Return if you worsen. We did discuss a Kim catheter today. Discharge Date/Time: 09/28/21 19:44
[2021-09-28 19:46] VITALS: BP 150/80
== END 2021-09-28 19:44 | disposition home or self-care (01) ==
LOC: ED 17:54
DX: R35.0 Frequency of micturition (principal); R30.0 Dysuria; R39.12 Poor urinary stream
CPT/HCPCS: 81003; 99282; 99283; A9270; 81001; 87086

== ENCOUNTER 2021-12-10 12:16 | Emergency (ER) | payer MEDICARE, OTHER ==
[2021-12-10] MEDS ORDERED: HYDROmorphone 1 MG/ML CARPUJECT IVP STA ×2 (13:27→15:18)
[2021-12-10] MEDS ORDERED: KETOROLAC 15 MG/ML VIAL IVP STA (13:27)
--- NOTE | 2021-12-10 13:30 | ED Physician Documentation ---
PD HPI ABD PAIN - Stated complaint Stated Complaint: PAIN DOWN THERE - Chief complaint Chief Complaint: Abd Pain - History obtained from History obtained from: Patient - Additional information Additional information: 71-year-old gentleman had a TURP by Dr. Hernandez on the of this month. Over the last day he has had gradual onset testicular/scrotal pain as well as pelvic pain and flank pain left greater than right. Not associated with urinary symptoms. It got worse yesterday while mowing the lawn on a riding lawnmower. Review of Systems Constitutional: denies: Fever, Chills GI: reports: Abdominal Pain. denies: Nausea, Vomiting, Constipation, Diarrhea PD PAST MEDICAL HISTORY - Past Medical History Cardiovascular: Hypertension, Angina Respiratory: None Endocrine/Autoimmune: None : Benign prostate hypertrophy, Kidney stones Psych: None Musculoskeletal: Chronic back pain Derm: None - Past Surgical History HEENT: Other - Present Medications Home Medications: Ambulatory Orders Medication Instructions Recorded Confirmed Trazodone HCl 50 mg PO DAILY 09/23/17 11/08/18 lisinopriL [Lisinopril] 5 mg PO DAILY 09/23/17 11/08/18 Hydrocodone/Acetaminophen 1 - 2 each PO Q6H PRN #14 tablet 11/08/18 [Hydrocodon-Acetaminophen 5-325] Naproxen Sodium 550 mg PO BID #20 tablet 11/08/18 Tamsulosin HCl [Flomax] 0.4 mg PO DAILY 11/08/18 11/08/18 Ciprofloxacin HCl [Cipro] 500 mg PO BID #56 tablet 12/10/21 Oxycodone HCl/Acetaminophen 1 - 2 each PO Q6H PRN #14 tablet 12/10/21 [Percocet 5-325 mg Tablet] - Allergies Allergies/Adverse Reactions: Allergies Allergy/AdvReac Type Severity Reaction Status Date / Time Sulfa (Sulfonamide AdvReac Unknown Verified 12/10/21 12:27 Antibiotics) - Social History Does the pt smoke?: No Smoking Status: Never smoker Does the pt drink ETOH?: Yes Does the pt have substance abuse?: No - Immunizations Immunizations are current?: Yes - POLST Patient has POLST: No PD ED PE NORMAL - Vitals Vital signs reviewed: Yes - General General: Alert and oriented X 3, No acute distress - HEENT HEENT: PERRL, EOMI - Neck Neck: Supple, no meningeal sign, No bony TTP - Cardiac Cardiac: RRR, No murmur - Abdomen Abdomen: Other (Very mild suprapubic tenderness, testicles and scrotum are nontender, exquisite rectal tenderness with prostate examination.) - Derm Derm: Normal color, Warm and dry - Neuro Neuro: Alert and oriented X 3, Normal speech Results - Vitals Vitals: Vital Signs - 24 hr 12/10/21 12/10/21 12/10/21 12:22 14:00 15:00 Temperature 36.9 C Heart Rate 71 55 L 51 L Respiratory 14 12 12 Rate Blood Pressure 162/77 H 154/98 H 153/79 H O2 Saturation 98 98 96 Oxygen O2 Source Room air - Labs Labs: Laboratory Tests 12/10/21 12/10/21 12/10/21 13:49 13:52 13:52 WBC 6.9 RBC 4.41 L Hgb 14.2 Hct 41.6 L MCV 94.3 H MCH 32.2 H MCHC 34.1 RDW 12.4 Plt Count 299 MPV 9.6 Neut # (Auto) 3.8 Lymph # (Auto) 2.0 [place] # (Auto) 0.8 Eos # (Auto) 0.3 Baso # (Auto) 0.1 Absolute Nucleated RBC 0.00 Nucleated RBC % 0.0 Sodium 142 Potassium 4.0 Chloride 107 Carbon Dioxide 24 Anion Gap 11.0 BUN 15 Creatinine 0.7 Estimated GFR (MDRD) 112 Glucose 80 Calcium 9.3 Urine Color DK. ORANGE Urine Clarity CLEAR Urine pH 5.0 Ur Specific [place] 1.025 Urine Protein Urine Glucose (UA) NEGATIVE Urine Ketones TRACE Urine Occult Blood Urine Nitrite Urine Bilirubin COLOR INTERFERENCE Urine Urobilinogen Ur Leukocyte Esterase Urine RBC 0-5 Urine WBC >25 H Ur Squamous Epith Cells NONE SEEN Urine Crystals 3-5 Calcium Oxalate Urine Bacteria Few Ur Microscopic Review INDICATED Urine Culture Comments INDICATED PD MEDICAL DECISION MAKING - ED course ED course: 71-year-old gentleman presents with pelvic pain starting a little under 2 weeks after a TURP, gradual onset with severe prostate tenderness. CT KUB without acute findings. He has a normal white count but pyuria. This is consistent with prostatitis. He understands the need to follow-up with his urologist and we will give him a copy of his CD to aid in that. Departure - Departure Disposition: 01 Home, Self Care Clinical Impression: Pelvic pain in male, Prostatitis Instructions: ED Prostatitis Prescriptions: Ciprofloxacin HCl [Cipro] 500 mg PO BID #56 tablet Oxycodone HCl/Acetaminophen [Percocet 5-325 mg Tablet] 1 - 2 each PO Q6H PRN #14 tablet PRN Reason: pain Comments: Call your urologist office and arrange a follow-up appointment whenever they think is appropriate but probably within the week. Take the copy of the CAT scan on CD with you to that appointment. Return for new or worsening symptoms. I sent your prescriptions electronically to [facility] in [place]. I am prescribing a short course of narcotic pain medication for you. These are potentially dangerous and addictive medications that should be used carefully. These medications may constipate you. Take an jjoo-qbt-bvzjxrm stool softener (docusate) twice daily with plenty of water while taking these medications. If you go 24 hours without a bowel movement, take vqvt-wed-[id number] miralax, per package instructions. Do not drink or drive while taking these medications. If you received narcotic or sedating medications while in the emergency department, do not drive for 24 hours. Store this medication in a safe, secure place and out of reach of children. It is a violation of federal law to give or sell this medication to another rson or to use in a manner other than prescribed. The ED will not refill narcotic prescriptions, including prescriptions lost or stolen. To dispose of unwanted medications: 1. [facility] at [address] in [place] has a medication drop box. They accept prescription medications (in pill form) Tuesday through Tuesday 9:00 a.m. to 5:00 p.m. 2. The [facility] [employer] accepts prescription medications (in pill form only) for disposal year round. Call for more information. 3. Contact the [facility] for the next [facility] sponsored prescription drug collection event. , [phone], or [phone]; Note that many narcotic pain relievers also contain Tylenol/acetaminophen. Please ensure that your total dose of acetaminophen from all sources does not exceed 3 g (3000 mg) per day.
[2021-12-10 14:07] LABS: CALCIUM 9.3 mg/dL (8.5-10.3); CREATININE 0.7 mg/dL (0.6-1.2)
[2021-12-10 14:08] LABS: GLUCOSE, URINE (UA) NEGATIVE (NEGATIVE); KETONES,URINE (UA) TRACE mg/dL (NEGATIVE)
[2021-12-10 14:14] LABS: BASOPHILS # (AUTO) 0.1 10^3/uL (0.0-0.1); BASOPHILS % (AUTO) 0.7 %; EOSINOPHILS # (AUTO) 0.3 10^3/uL (0.0-0.7); EOSINOPHILS % (AUTO) 3.6 %; HCT - HEMATOCRIT 41.6 % (42.0-52.0); HGB - HEMOGLOBIN 14.2 g/dL (14.0-18.0); LYMPHOCYTES % (AUTO) 28.5 %; MEAN CORPUSCULAR HEMOGLOBIN 32.2 pg (27.0-31.0); MEAN CORPUSCULAR HGB CONC 34.1 g/dL (32.0-36.0); MEAN CORPUSCULAR VOLUME 94.3 fL (80.0-94.0); MEAN PLATELET VOLUME 9.6 fL (7.4-11.4); MONOCYTES # (AUTO) 0.8 10^3/uL (0.0-1.0); MONOCYTES % (AUTO) 11.4 %; NEUTROPHILS # (AUTO) 3.8 10^3/uL (1.5-6.6); NEUTROPHILS % (AUTO) 55.5 %; PLT - PLATELET COUNT 299 10^3/uL (130-450); RED BLOOD COUNT 4.41 10^6/uL (4.70-6.10); RED CELL DISTRIBUTION WIDTH 12.4 % (12.0-15.0); WHITE BLOOD COUNT 6.9 x10^3/uL (4.8-10.8)
[2021-12-10 14:15] LABS: CLARITY,URINE CLEAR (CLEAR)
[2021-12-10 14:16] LABS: BILIRUBIN,URINE COLOR INTERFERENCE (NEGATIVE)
[2021-12-10 14:19] LABS: BACTERIA,URINE Few /HPF (None Seen); RBC,URINE 0-5 /HPF (0-5); SQUAMOUS EPITHELIAL CELL,UR NONE SEEN (<= Few); WBC,URINE >25 /HPF (0-3)
[2021-12-10 14:20] LABS: CRYSTALS,URINE 3-5 Calcium Oxalate /LPF
--- NOTE | 2021-12-10 15:14 | CT Report ---
PROCEDURE: Abdomen/Pelvis WO INDICATIONS: pelvic pain TECHNIQUE: Noncontrast 5 mm thick sections acquired from the diaphragms to the symphysis. 5 mm coronal and sagi ttal reformats were then performed. For radiation dose reduction, the following was used: automated exposure control, adjustment of mA and/or kV according to patient size. COMPARISON: None. FINDINGS: Image quality: Excellent. ABDOMEN: Lung bases: Lung bases are clear. Heart size is normal. Solid organs: Liver and spleen are normal in size. Gallbladder is normal Pancreas is normal in con tours. No adrenal nodules. Kidneys are normal in size, without hydronephrosis or nephrolithiasis. The right kidney has nonobstructive calcifications. Peritoneum and bowel: Unenhanced bowel loops demonstrate normal wall thickness and caliber. No free fluid or air. Nodes and vessels: No retroperitoneal or mesenteric adenopathy by size criteria. Aorta and inferior vena cava are normal in caliber. Miscellaneous: No ventral hernias. PELVIS: Genitourinary: Bladder wall thickness is normal. The patient is status post TURP. There is no posto perative complication of the prostate or surrounding tissues identified. The prostate measures 4.2 cm in diameter and there is a central calcification. Miscellaneous: No inguinal hernias or adenopathy. Bones: No suspicious bony lesions. No vertebral body compression fractures. IMPRESSION: 1. No acute abnormality of the abdomen or pelvis. 2. Nonobstructive calculi in the right kidney. 3. Diverticulosis without evidence of diverticulitis. 4. No postoperative complication status post TURP. Reviewed by: Alonso Zuniga on 12/10/2021 3:12 PM PDT Approved by: Alonso Zuniga on 12/10/2021 3:12 PM PDT Station ID: [id number]
[2021-12-10] MEDS ORDERED: CIPROFLOXACIN 250 MG TABLET PO STA (15:15)
[2021-12-10 15:36] VITALS: BP 178/85
== END 2021-12-10 15:51 | disposition home or self-care (01) ==
LOC: ED 12:16
DX: N41.9 Inflammatory disease of prostate, unspecified (principal); Z98.890 Other specified postprocedural states; I10 Essential (primary) hypertension
CPT/HCPCS: 36415; 74176; 80048; 81001; 85025; 87086; 96374; 96375; 96376; 99283; 99284; A9270; J1170; 81003

== ENCOUNTER 2022-06-04 12:54 | Outpatient (CLI) | payer MEDICARE, OTHER ==
--- NOTE | 2022-06-04 13:21 | XRAY Report ---
PROCEDURE: Abdomen 1 View X-Ray INDICATIONS: NEPHRPLITHIASIS TECHNIQUE: One view of the abdomen acquired. COMPARISON: CT of abdomen and pelvis dated 12/10/2021 FINDINGS: Surgical changes and devices: None. Bowel: Bowel gas pattern is normal. Soft tissues: There is a 1 cm calcification seen projecting in the region of lower pole right kidney which was also seen on previous CT study. A tiny 3 to 4 mm calcification is also seen in the region o f lower pole right kidney. No obvious left renal calcification is seen. Visualized solid organ contou rs appear normal in size. Bones: No suspicious bony lesions. IMPRESSION: Suggestion of right renal calculi as above. No definite left renal calcification is seen. No evidence of bowel obstruction or gross free air. Reviewed by: Samson Mcnamara MD on 06/04/2022 1:20 PM PST Approved by: Samson Mcnamara MD on 06/04/2022 1:20 PM PST Station ID: [id number]
== END 2022-06-04 12:55 | disposition home or self-care (01) ==
LOC: DI 12:54
PROVIDERS: ATTEND Urology
DX: Z09 Encounter for follow-up examination after completed treatment for conditions other than malignant neoplasm (principal); Z87.442 Personal history of urinary calculi

== ENCOUNTER 2022-09-16 13:21 | Emergency (ER) | payer MEDICARE, OTHER ==
[2022-09-16 13:30] VITALS: BP 158/92
[2022-09-16 14:07] LABS: RAPID STREP SCREEN Negative (Negative)
[2022-09-16 14:51] LABS: B. PARAPERTUSSIS- RESP PCR PAN NOT DETECTED; B. PERTUSSIS- RESP PCR PANEL NOT DETECTED; C. PNEUMONIAE- RESP PCR PANEL NOT DETECTED; CORONAVIRUS 229E-RESP PCR NOT DETECTED; CORONAVIRUS HKU1-RESP PCR NOT DETECTED; CORONAVIRUS NL63-RESP PCR NOT DETECTED; CORONAVIRUS OC43-RESP PCR NOT DETECTED; HUMAN METAPNEUMOVIRUS NOT DETECTED; INFLUENZA A- RESP PCR PANEL NOT DETECTED; INFLUENZA B - RESP PCR PANEL NOT DETECTED; M. PNEUMONIAE- RESP PCR PANEL NOT DETECTED; PARAINFLUENZA VIRUS 1 NOT DETECTED; PARAINFLUENZA VIRUS 2 NOT DETECTED; PARAINFLUENZA VIRUS 3 NOT DETECTED; PARAINFLUENZA VIRUS 4 NOT DETECTED; RHINOVIRUS/ENTEROVIRUS NOT DETECTED; RSV- RESP PCR PANEL NOT DETECTED; SARS-CoV-2 -RESP PCR PANEL NOT DETECTED
--- NOTE | 2022-09-16 15:40 | ED Physician Documentation ---
History of Present Illness - Stated complaint Stated Complaint: THROAT PX - Chief complaint Chief Complaint: Heent - Additonal information Additional information: 72-year-old male presents to the emergency department for evaluation of 2 months right sinus congestion, loss of voice and muffled hearing in the right ear. He states that he is intermittently been doing saline rinses which are sometimes helpful though not always. He is using Flonase and Sudafed daily which helped for only a short period of time. At the onset of symptoms he was prescribed a 5-day course of Augmentin. He does have an ENT appointment pending for October 15. He has had no fevers. Denies any cough. States he drank some whiskey last night which helped with a sore voice. No fevers. Review of Systems Constitutional: denies: Fever, Chills Nose: reports: Congestion Throat: reports: Sore throat (Positive laryngitis) Cardiac: reports: Reviewed and negative Respiratory: reports: Reviewed and negative GI: reports: Reviewed and negative : reports: Reviewed and negative Neurologic: reports: Reviewed and negative. denies: Headache PD PAST MEDICAL HISTORY - Past Medical History Cardiovascular: Hypertension, Angina Respiratory: None Endocrine/Autoimmune: None : Benign prostate hypertrophy, Kidney stones Psych: None Musculoskeletal: Chronic back pain Derm: None - Past Surgical History HEENT: Other - Present Medications Home Medications: Ambulatory Orders Medication Instructions Recorded Confirmed Trazodone HCl 50 mg PO DAILY 09/23/17 11/08/18 lisinopriL [Lisinopril] 5 mg PO DAILY 09/23/17 11/08/18 Hydrocodone/Acetaminophen 1 - 2 each PO Q6H PRN #14 tablet 11/08/18 [Hydrocodon-Acetaminophen 5-325] Naproxen Sodium 550 mg PO BID #20 tablet 11/08/18 Tamsulosin HCl [Flomax] 0.4 mg PO DAILY 11/08/18 11/08/18 Ciprofloxacin HCl [Cipro] 500 mg PO BID #56 tablet 12/10/21 Oxycodone HCl/Acetaminophen 1 - 2 each PO Q6H PRN #14 tablet 12/10/21 [Percocet 5-325 mg Tablet] Amox/Clav 875/125 [Augmentin] 1 each PO Q12H #20 tablet 09/16/22 Fluticasone [Flonase] 1 sprays KEYLA BID PRN #16 gm 09/16/22 Loratadine [Claritin] 10 mg PO DAILY #30 tablet 09/16/22 - Allergies Allergies/Adverse Reactions: Allergies Allergy/AdvReac Type Severity Reaction Status Date / Time Sulfa (Sulfonamide AdvReac Unknown Verified 09/16/22 13:30 Antibiotics) - Social History Does the pt smoke?: No Smoking Status: Never smoker Does the pt drink ETOH?: Yes Does the pt have substance abuse?: No - Immunizations Immunizations are current?: Yes - POLST Patient has POLST: No PD ED PE NORMAL - General General: Alert and oriented X 3, No acute distress, Well developed/nourished - HEENT HEENT: Atraumatic, Ears normal (Minimal right TM effusion. No erythema. Left TM is scarred but no retraction or effusion noted. No erythema.), Moist mucous membranes, Pharynx benign (Mild posterior oropharynx erythema without tonsillar exudate. Uvula is midline. No soft palate asymmetry or swelling. Does have positive laryngitis. Normal swallow. Full range of motion of the neck), Dentition benign - Neck Neck: Supple, no meningeal sign, No adenopathy - Cardiac Cardiac: RRR, No murmur - Respiratory Respiratory: No respiratory distress, Clear bilaterally - Abdomen Abdomen: Normal bowel sounds, Soft - Derm Derm: Warm and dry - Extremities Extremities: No deformity, No tenderness to palpate, Normal ROM s pain - Neuro Neuro: Alert and oriented X 3, instructional interventionist 2-12 intact Eye Opening: Spontaneous Motor: Obeys Commands Verbal: Oriented GCS Score: 15 - Psych Psych: Normal mood Results - Vitals Vitals: Vital Signs - 24 hr 09/16/22 13:25 Temperature 35.9 C L Heart Rate 81 Respiratory 16 Rate Blood Pressure 158/92 H O2 Saturation 100 Oxygen O2 Source Room air - Labs Labs: Laboratory Tests 09/16/22 09/16/22 13:30 13:30 Nasal Adenovirus (PCR) NOT DETECTED Nasal B. parapertussis DNA (PCR) NOT DETECTED Nasal Coronavir 229E PCR NOT DETECTED Nasal Coronavir HKU1 PCR NOT DETECTED Nasal Coronavir NL63 PCR NOT DETECTED Nasal Coronavir OC43 PCR NOT DETECTED Nasal Enterovir/Rhinovir PCR NOT DETECTED Nasal Influenza B PCR NOT DETECTED Nasal Influenza A PCR NOT DETECTED Nasal Parainfluen 1 PCR NOT DETECTED Nasal Parainfluen 2 PCR NOT DETECTED Nasal Parainfluen 3 PCR NOT DETECTED Nasal Parainfluen 4 PCR NOT DETECTED Nasal RSV (PCR) NOT DETECTED Nasal B.pertussis DNA PCR NOT DETECTED Nasal C.pneumoniae (PCR) NOT DETECTED Keyla Human Metapneumo PCR NOT DETECTED Nasal M.pneumoniae (PCR) NOT DETECTED Nasal SARS-CoV-2 (PCR) NOT DETECTED Group A Strep Rapid Negative PD Medical Decision Making - ED course Complexity details: reviewed results, considered differential, d/w patient ED course: 72-year-old male presents emergency department for evaluation of 2 months right sinus congestion, muffled hearing in the right ear as well as laryngitis and progressively worsening loss of voice. Clinically on exam he has unremarkable cardiopulmonary auscultation. No hypoxia. He does have some mild posterior oropharynx erythema but no tonsillar exudate or soft palate asymmetry or swelling to suggest FOOD ANALYST. Given the full range of motion of the neck and lack of fevers I have lower suspicion for an RPA. He does have a very minimal right TM effusion. The patient seemingly has had a now subacute sinus congestion for about 2 months with associated laryngitis. A respiratory PCR today is negative for all viruses. Rapid strep was also negative. Patient is scheduled to follow-up with ENT which I believe is appropriate considering the duration of his symptoms. As we are entering spring weather I think he may benefit from taking a daily Claritin. He has had some intermittent relief of symptoms with saline nasal rinses. I have made the recommendation he do this daily as well and follow that rinse with Flonase. Given the duration of the symptoms however he will be started on a 10-day course of Augmentin for Subacute sinusitis. I have discussed the usual emergent return precautions with the patient as well as recommended close follow-up with ENT as well as his PCP. Departure - Departure Disposition: 01 Home, Self Care Clinical Impression: Laryngitis Sinusitis Qualifiers: Sinusitis location: unspecified location Chronicity: unspecified Qualified Code(s): J32.9 - Chronic sinusitis, unspecified Condition: Stable Record reviewed to determine appropriate education?: Yes Instructions: ED Sinusitis Abx Tx Prescriptions: Amox/Clav 875/125 [Augmentin] 1 each PO Q12H #20 tablet Loratadine [Claritin] 10 mg PO DAILY #30 tablet Fluticasone [Flonase] 1 sprays KEYLA BID PRN #16 gm PRN Reason: Nasal Congestion Comments: You came to the emergency department today because about 2 months ago you began having some sinus congestion as well as drainage. Over the last 2 months you have lost your voice. You also have a lot of popping in your right ear. I think is appropriate that you continue to follow-up with the ENT appointment you have in early October. In order to help manage the symptoms I think you would benefit from beginning to take a daily allergy medicine. Prescription for Claritin has been sent to the [facility]. I encourage you to do daily saline nasal rinses. Start by using the left nostril to hopefully rinse out your right sinus. Following the nasal rinse which I recommend you do in the shower, then use the Flonase nasal spray. Because of the duration of your symptoms you would likely benefit at this point from a short course of antibiotics. A prescription for Augmentin has been sent to the [facility] as well. We did do a respiratory PCR test today which test you for a number of common viruses and the testing was Negative. Your rapid strep test was also negative. I do recommend that you do take a teaspoon of honey every few hours. This can help coat the throat, and improve the laryngitis. If you find that your symptoms or not improving, You develop chest pain, have shortness of air, any fainting episodes, loss of vision or sudden severe headache, please return immediately to the ER.
== END 2022-09-16 15:48 | disposition home or self-care (01) ==
LOC: ED 13:21
DX: J04.0 Acute laryngitis (principal); J32.9 Chronic sinusitis, unspecified; I10 Essential (primary) hypertension; Z20.822 Contact with and (suspected) exposure to COVID-19
CPT/HCPCS: 87070; 87430; 87633; 99283; 99284

== ENCOUNTER 2022-11-16 10:24 | Outpatient (CLI) | payer MEDICARE, OTHER ==
[2022-11-16 10:33] LABS: BILIRUBIN,URINE NEGATIVE (NEGATIVE); GLUCOSE, URINE (UA) NEGATIVE (NEGATIVE); KETONES,URINE (UA) TRACE mg/dL (NEGATIVE); LEUKOCYTE ESTERASE, URINE NEGATIVE (NEGATIVE); NITRITE,URINE NEGATIVE (NEGATIVE); OCCULT BLOOD,URINE NEGATIVE (NEGATIVE); PH,URINE 5.5 PH (5.0-7.5); PROTEIN,URINE TRACE mg/dL (NEGATIVE); UROBILINOGEN,URINE 0.2 (NORMAL) E.U./dL (NORMAL)
[2022-11-16 10:35] LABS: CLARITY,URINE CLEAR (CLEAR)
[2022-11-16 10:54] LABS: BACTERIA,URINE Few /HPF (None Seen); RBC,URINE 0-5 /HPF (0-5); SQUAMOUS EPITHELIAL CELL,UR FEW Squamous (<= Few)
[2022-11-16 10:55] LABS: CRYSTALS,URINE 0-2 Calcium Oxalate /LPF; MUCUS,URINE Moderate Strands
== END 2022-11-16 10:25 | disposition home or self-care (01) ==
LOC: LAB 10:24
PROVIDERS: ATTEND Physician Assistant Medical
DX: R39.9 Unspecified symptoms and signs involving the genitourinary system (principal); Z87.442 Personal history of urinary calculi
CPT/HCPCS: 81001; 87086

== ENCOUNTER 2022-11-29 16:56 | Outpatient (CLI) | payer MEDICARE, OTHER ==
--- NOTE | 2022-11-30 08:54 | Ultrasound Report ---
PROCEDURE: Retroperitoneal INDICATIONS: HIST OF NEPHROLITHIASIS TECHNIQUE: Real-time scanning was performed of the retroperitoneal organs, with image documentation. COMPARISON: None. FINDINGS: Moderate right hydronephrosis. Multiple stones are present, measuring up to 1 cm in the int erpolar region and 0.9 cm near the lower pole. Nonobstructing 0.6 cm left calyceal stone is also present. The right kidney measures 12 cm. The left kidney measures 12 cm. Normal cortical thickness is bilater ally. Prevoid volume is 143 cc. Postvoid volume of the bladder is 4 cc. Both ureteral jets are visualized. IMPRESSION: Moderate right hydronephrosis and multiple stones measuring up to 1 cm are present. Nonobstructing 0. 6 cm left renal stone also seen. Postvoid bladder volume is 4 cc. Both ureteric jets are present. Reviewed by: Kike Gant MD on 11/30/2022 8:53 AM PDT Approved by: Kike Gant MD on 11/30/2022 8:53 AM PDT Station ID: [id number]
== END 2022-11-29 16:57 | disposition home or self-care (01) ==
LOC: DI 16:56
PROVIDERS: ATTEND Physician Assistant Medical
DX: N13.2 Hydronephrosis with renal and ureteral calculous obstruction (principal); Z87.442 Personal history of urinary calculi

== ENCOUNTER 2022-12-03 07:03 | Outpatient (CLI) | payer MEDICARE, OTHER ==
--- NOTE | 2022-12-03 14:22 | CT Report ---
PROCEDURE: ABDOMEN/PELVIS WO INDICATIONS: HYDRONEPHROSIS TECHNIQUE: A CT scan of the abdomen and pelvis was performed without the use of intravenous contrast. Images we re recorded and evaluated at appropriate window settings. Reformats: coronal and sagittal. For radiat ion dose reduction, the following was used: automated exposure control, adjustment of mA and/or kV ac cording to patient size. COMPARISON: None. FINDINGS: Image quality: Excellent. Lung bases and heart: Unremarkable. Liver: No solid mass. Gallbladder and biliary tree: No radiopaque stones or wall thickening. No biliary dilation. Spleen: No splenomegaly. Pancreas: No pancreatic ductal dilation. Adrenals: No adrenal nodule. Kidneys and ureters: Obstructing 4 to 5 mm stone in the distal right ureter (series 3, image 114), re sulting in moderate upstream hydronephroureter. Additional nonobstructing right-sided nephrolithiasis , largest stones measuring 1.1 cm (982 Hounsfield unit) and 0.2 cm (1027 Hounsfield unit) Bowel and peritoneum: No bowel distension. No pathologic free fluid. Fecal debris within the small brian wel. Diverticulosis without evidence of diverticulitis. Lymph nodes: No central or retroperitoneal adenopathy. Vessels: No infrarenal aortic aneurysm. PELVIS Reproductive organs: Unremarkable. Bladder: No wall thickness, accounting for underdistention. Pelvic lymph nodes: No pelvic adenopathy by size criteria. Bones: No aggressive osseous abnormality. Other: No significant ventral or inguinal hernia. IMPRESSION: Obstructing 4 to 5 mm stone in the distal right ureter, with upstream hydronephrosis. Additional nonobstructing right-sided stones, largest measuring 1.2 cm. Fecal debris within the small bowel, which may indicate small intestinal bacterial overgrowth versus slow intestinal transit. Reviewed by: Anuj Kinney on 12/03/2022 2:20 PM PDT Approved by: Anuj Kinney on 12/03/2022 2:20 PM PDT Station ID: [id number]
== END 2022-12-03 07:04 | disposition home or self-care (01) ==
LOC: DI 07:03
PROVIDERS: ATTEND Physician Assistant Medical
DX: N13.2 Hydronephrosis with renal and ureteral calculous obstruction (principal)

== ENCOUNTER 2023-02-11 11:27 | Outpatient (CLI) | payer MEDICARE, OTHER ==
--- NOTE | 2023-02-11 13:04 | XRAY Report ---
PROCEDURE: Lumbar Spine 2 View INDICATIONS: RIGHT LEG PAIN TECHNIQUE: 3 views of the lumbar spine were acquired. COMPARISON: CT abdomen and pelvis without contrast dated 01/20/2023 FINDINGS: Bones: 5 [id number] vertebrae are present. There is normal bony alignment. No vertebral body compression fractures. No suspicious bony lesions. Unilateral right L5 pars defect. Mild lower lumb ar facet arthropathy. Of note, on the CT, there is moderately severe right L4-L5 foraminal narrowing with a degree of right L4 foraminal nerve root impingement. Soft tissues: Overlying bowel gas pattern is normal. No suspicious soft tissue calcifications. IMPRESSION: 1. No acute bony abnormality. 2. Unilateral right L5 pars defect. 3. Mild lower lumbar facet arthropathy. 4. On the CT, there is evidence of moderately severe right L4-L5 foraminal narrowing with right L4 fo raminal nerve root impingement. Question: Does this patient have right L4 radicular symptoms? Reviewed by: Cholo Brown MD on 02/11/2023 1:03 PM PDT Approved by: Cholo Brown MD on 02/11/2023 1:03 PM PDT Station ID: [id number]
== END 2023-02-11 11:28 | disposition home or self-care (01) ==
LOC: DI 11:27
PROVIDERS: ATTEND Student in an Organized Health Care Education/Training Program
DX: M79.604 Pain in right leg (principal); M47.816 Spondylosis without myelopathy or radiculopathy, lumbar region; M48.061 Spinal stenosis, lumbar region without neurogenic claudication

== ENCOUNTER 2023-02-23 17:26 | Outpatient (CLI) | payer MEDICARE, OTHER ==
--- NOTE | 2023-02-24 11:11 | MRI Report ---
PROCEDURE: LUMBAR SPINE WO INDICATIONS: PAIN IN RIGHT LEG TECHNIQUE: Noncontrast sagittal T1 spin echo and T2 fast echo, sagittal STIR, axial T1 and T2 fast spin echo thr ough the lumbar spine. In cases with scoliosis, additional coronal T2 fast spin echo may be performe d. COMPARISON: X-ray lumbar spine 02/11/2023. FINDINGS: Image quality: Excellent. Alignment and Curvature: Straightening of normal lumbar lordosis. No spondylolisthesis. Bone Marrow: Degenerative endplate changes at L4-L5. No acute vertebral body compression fractures. Spinal Cord: Conus medullaris terminates at the L1 level. Visualized cord demonstrates normal signa l and size. Paraspinous Soft Tissues: No paravertebral masses. Left renal simple appearing cyst. T12-L1: No central canal or neuroforaminal stenosis. L1-L2: Mild facet arthropathy. No central canal or neuroforaminal stenosis. L2-L3: Disc desiccation and height loss. Small posterior disc bulge. Facet arthropathy and thicken ing of ligamentum flavum. Mild central canal stenosis. Mild bilateral neuroforaminal stenosis. L3-L4: Disc desiccation and height loss with posterior disc bulge. Facet arthropathy and thickening of ligamenta flava. Mild central canal stenosis. Narrowing of the right greater than left lateral re cesses with abutment of the descending L4 nerve roots. No neuroforaminal stenosis. L4-L5: Severe disc desiccation and height loss. Small posterior disc bulge. Facet arthropathy. No c entral canal stenosis. Moderate right and mild left neuroforaminal stenosis. L5-S1: Facet arthropathy. No central canal or neuroforaminal stenosis. IMPRESSION: 1.Multilevel degenerative changes of the lumbar spine as described above. 2.There is mild central canal stenosis at L2-L3 and L3-L4. Mild narrowing of the lateral recesses at L3-L4 with abutment of the descending L4 nerve roots. 3.Moderate right neuroforaminal stenosis at L4-L5. Additional levels of mild neuroforaminal stenosis as described above. Reviewed by: Brent Messer MD on 02/24/2023 11:09 AM PDT Approved by: Brent Messer MD on 02/24/2023 11:09 AM PDT Station ID: [id number]
== END 2023-02-23 17:27 | disposition home or self-care (01) ==
LOC: DI 17:26
PROVIDERS: ATTEND Student in an Organized Health Care Education/Training Program
DX: M54.41 Lumbago with sciatica, right side (principal); M79.604 Pain in right leg; M47.816 Spondylosis without myelopathy or radiculopathy, lumbar region; M48.061 Spinal stenosis, lumbar region without neurogenic claudication

== ENCOUNTER 2023-09-21 09:51 | Outpatient (CLI) | payer MEDICARE, OTHER ==
--- NOTE | 2023-09-21 13:22 | XRAY Report ---
PROCEDURE: Cervical Spine 2-3V INDICATIONS: CERVICAL/THORACIC PAIN TECHNIQUE: 3 views of the cervical spine were acquired. COMPARISON: None. FINDINGS: Bones: No fractures or dislocations to the T1 level. 2 mm grade 1 anterolisthesis at C3-4. The later al masses of C1 appear intact on the odontoid view. No suspicious bony lesions. Multilevel disc spa ce narrowing and degenerative endplate changes. Multilevel uncovertebral joint and facet hypertrophy. Generalized osteopenia. Soft tissues: No prevertebral soft tissue swelling. IMPRESSION: Moderate multilevel spondylosis Reviewed by: Facundo Dunne MD on 09/21/2023 1:20 PM PDT Approved by: Facundo Dunne MD on 09/21/2023 1:20 PM PDT Station ID: [id number]
--- NOTE | 2023-09-21 13:23 | XRAY Report ---
PROCEDURE: Thoracic Spine 3V INDICATIONS: THORACIC PAIN TECHNIQUE: 2 views of the thoracic spine were acquired. COMPARISON: None. FINDINGS: Bones: No acute fractures or dislocations. Mildly exaggerated thoracic kyphosis. No suspicious bony lesions. 12 pairs of ribs are noted, and appear intact where visualized. Multilevel mild degenerat edwardo endplate changes. Soft tissues: No paravertebral stripe thickening. IMPRESSION: Mild multilevel spondylosis. Reviewed by: Facundo Dunne MD on 09/21/2023 1:21 PM PDT Approved by: Facundo Dunne MD on 09/21/2023 1:21 PM PDT Station ID: [id number]
== END 2023-09-21 09:52 | disposition home or self-care (01) ==
LOC: DI 09:51
PROVIDERS: ATTEND Chiropractor
DX: M47.812 Spondylosis without myelopathy or radiculopathy, cervical region (principal); M85.88 Other specified disorders of bone density and structure, other site; M47.814 Spondylosis without myelopathy or radiculopathy, thoracic region

== ENCOUNTER 2023-10-11 15:12 | Outpatient (CLI) | payer MEDICARE, OTHER ==
--- NOTE | 2023-10-12 11:41 | XRAY Report ---
PROCEDURE: Thoracic Spine 2V INDICATIONS: THORACIC BACK PAIN TECHNIQUE: 2 views of the thoracic spine were acquired. COMPARISON: 09/21/2023 FINDINGS: Bones: No fractures or dislocations. No suspicious bony lesions. 12 pairs of ribs are noted, and a ppear intact where visualized. Multilevel disc height loss. Soft tissues: No paravertebral stripe thickening. IMPRESSION: No acute bony abnormality. Unchanged mild, multilevel degenerative disc disease. Reviewed by: Anuj Kinney MD on 10/12/2023 11:39 AM PDT Approved by: Anuj Kinney MD on 10/12/2023 11:39 AM PDT Station ID: [id number]
--- NOTE | 2023-10-12 12:33 | XRAY Report ---
PROCEDURE: Cervical Spine 2-3V INDICATIONS: NECK AND THORACIC BACK PAIN TECHNIQUE: 3 view(s) of the cervical spine were acquired. COMPARISON: None. FINDINGS: Bones: No fractures or dislocations to the T1 level. The lateral masses of C1 appear intact on the odontoid view. No suspicious bony lesions. Moderate disc height loss at C5-6, C6-7. Mild disc heigh t loss at remaining levels. Multilevel facet arthrosis, most prominent at the left side of C2-3 and C 3-4. Soft tissues: No prevertebral soft tissue swelling. IMPRESSION: Mild to moderate, multilevel degenerative disc disease and diffuse facet arthrosis. Reviewed by: Anuj Kinney MD on 10/12/2023 12:31 PM PDT Approved by: Anuj Kinney MD on 10/12/2023 12:31 PM PDT Station ID: [id number]
== END 2023-10-11 15:13 | disposition home or self-care (01) ==
LOC: DI 15:12
PROVIDERS: ATTEND Student in an Organized Health Care Education/Training Program
DX: M47.812 Spondylosis without myelopathy or radiculopathy, cervical region (principal); M50.30 Other cervical disc degeneration, unspecified cervical region; M51.34 Other intervertebral disc degeneration, thoracic region

== ENCOUNTER 2023-11-14 16:52 | Outpatient (CLI) | payer MEDICARE, OTHER ==
--- NOTE | 2023-11-15 14:10 | MRI Report ---
PROCEDURE: Cervical Spine WO INDICATIONS: CERVCALGIA TECHNIQUE: Noncontrast sagittal T1 spin echo and T2 fast spin echo, sagittal STIR, foraminal oblique sagittal T2 fast spin echo, and axial gradient echo or T2 fast spin echo through the cervical spine. COMPARISON: Xray Cervical spine 10/11/23 FINDINGS: Image quality: Excellent. Alignment and Curvature: There is trace retrolisthesis of C5, C5 on C6, C6 on C7 Bone Marrow: Marrow demonstrates normal overall signal. Mild degenerative changes are present at C2 C4, C6, minimal central Spinal Cord: Visualized spinal cord has normal size and signal. No cerebellar tonsillar herniation. Paraspinous Soft Tissues: No paravertebral masses. Prevertebral soft tissues are normal in thicknes s. Discs: Multilevel moderate to severe disc desiccation most severe at C5-6. C2-C3: Minimal disc bulge without spinal stenosis. Mild to moderate left foraminal narrowing with un covertebral hypertrophy. C3-C4: Mild disc bulge with effacement of the anterior thecal sac. Mild bilateral foraminal narrowi ng with uncovertebral hypertrophy. C4-C5: Mild disc bulge with effacement of the anterior thecal sac. Moderate to severe bilateral fora ghislaine narrowing with uncovertebral hypertrophy. C5-C6: Mild disc bulge with mild spinal stenosis. Moderate to severe left and severe right foraminal narrowing with uncovertebral hypertrophy. C6-C7: Mild disc bulge with minimal spinal stenosis. Moderate to severe bilateral foraminal narrowin g with uncovertebral hypertrophy. C7-T1: No disc bulge, spinal stenosis or foraminal narrowing. IMPRESSION: Multilevel disc bulges. Multilevel overall mild spinal stenosis most prominent at C5-6. Multilevel foraminal narrowing most severe at C5-6 secondary to uncovertebral arthropathy. Reviewed by: Quita Houston MD on 11/15/2023 2:09 PM PDT Approved by: Quita Houston MD on 11/15/2023 2:09 PM PDT Station ID: [id number]
== END 2023-11-14 16:53 | disposition home or self-care (01) ==
LOC: DI 16:52
PROVIDERS: ATTEND Student in an Organized Health Care Education/Training Program
DX: M47.812 Spondylosis without myelopathy or radiculopathy, cervical region (principal); M50.31 Other cervical disc degeneration, high cervical region; M48.02 Spinal stenosis, cervical region

== ENCOUNTER 2024-01-12 12:47 | Outpatient (CLI) | payer MEDICARE, OTHER ==
--- NOTE | 2024-01-13 14:31 | XRAY Report ---
PROCEDURE: Thoracic Spine 2V INDICATIONS: THORACIC SPINE PAIN TECHNIQUE: 2 view(s) of the thoracic spine were acquired. COMPARISON: None FINDINGS: Bones: Vertebral body height and alignment maintained. No lytic or blastic intrinsic lesions. Soft tissues: Paravertebral soft tissues are unremarkable IMPRESSION: Unremarkable thoracic spine radiographs Reviewed by: Tayo Castillo MD on 01/13/2024 1:30 PM AKDT Approved by: Tayo Castillo MD on 01/13/2024 1:30 PM AKDT Station ID: [id number]
== END 2024-01-12 12:48 | disposition home or self-care (01) ==
LOC: DI 12:47
PROVIDERS: ATTEND Student in an Organized Health Care Education/Training Program
DX: M54.6 Pain in thoracic spine (principal)